=== PATIENT | male | born 1995 | race Two or more races ===

== ENCOUNTER 2021-02-07 17:55 | Emergency (ER) | payer OTHER ==
[~2021-02-07] VITALS: Ht 182.9 cm; Wt 117.9 kg
[2021-02-07 19:10] LABS: Basophils # (auto) 0.1 10 ^3/uL (0-0.2); Basophils % (auto) 0.7 % (0.0-2.0); Eosinophils # (auto) 0.1 10 ^3/uL (0-0.8); Eosinophils % (auto) 0.8 % (0.0-7.0); Hematocrit 44.2 % (41.0-53.0); Hemoglobin 15.8 g/dL (13.5-17.5); Lymphocytes # (auto) 2.3 10 ^3/uL (0.4-5.4); Lymphocytes % (auto) 22.8 % (10.0-50.0); Mean Corpuscular Hemoglobin 29.3 pg (28.0-32.0); Mean Corpuscular Hgb Conc. 35.7 g/dL (32.0-36.0); Mean Corpuscular Volume 81.9 fL (80.0-100.0); Monocytes # (auto) 0.6 10 ^3/uL (0-1.3); Monocytes % (auto) 5.8 % (0.0-12.0); Neutrophils # (auto) 7.1 10 ^3/uL (1.6-8.6); Neutrophils % (auto) 69.9 % (37.0-80.0); Nucleated Red Blood Cells % 2.5 %; Red Cell Distribution Width 12.6 % (11.8-14.3); White Blood Cell 10.2 10^3/uL (4.4-10.8)
[2021-02-07 19:28] LABS: Chloride 105 mmol/L (98-107); Potassium 3.8 mmol/L (3.5-5.1); Sodium 138 mmol/L (136-145)
[2021-02-07 19:39] LABS: Alanine Aminotransferase 89 U/L (16-61); Albumin 4.4 g/dL (3.4-5.0); Alkaline Phosphatase 78 U/L (45-117); Anion Gap 7 (5-15); Aspartate Aminotransferase 51 U/L (15-37); BUN/Creatinine Ratio 21.3; Blood Urea Nitrogen 20 mg/dL (7-18); Calcium 9.9 mg/dL (8.5-10.1); Carbon Dioxide 26 mmol/L (21-32); GFR African American 125 mL/min; GFR Non-African American 103 mL/min; Glucose 94 mg/dL (74-106); Total Protein 7.7 g/dL (6.4-8.2)
[2021-02-07 22:23] VITALS: BP 136/86
== END 2021-02-07 22:26 | disposition home or self-care (01) ==
LOC: ER 17:55
DX: R07.89 Other chest pain (principal)
CPT/HCPCS: 36415; 71045; 80053; 84484; 85025; 93005